=== PATIENT | male | born 1950 | race Caucasian/White ===

== ENCOUNTER → 2020-08-23 | Outpatient (CLI) | payer OTHER ==
[~2020-08-23] MED LIST: ASPIRIN EC81 M1 PO; BYSTOLIC 5 MG5 M1 PO; CELEBREX 200 M200 MG PO; HYDROCODONE-AP1 EAC6 PO; IBUPROFEN 800800 M1 PO; METAMUCIL WAFER1 PK1 PO; MIRALAX255 GM PO; NEURONTIN 300300 M1 PO; OXCARBAZEPINE300 MG PO; OXYCONTIN10 M1 PO; OXYIR5 MG PO; SIMVASTATIN40 MG PO; STOOL SOFTENER1 EAC2 PO; STOOL SOFTENER50 MG; XARELTO10 MG PO; [UNRECOGNIZED DRUG - OTHER]
== END ==
LOC: M.LAB 07:24
PROVIDERS: ATTEND Orthopaedic Surgery
DX: Z01.812 Encounter for preprocedural laboratory examination (principal); Z20.828 Contact with and (suspected) exposure to other viral communicable diseases

== ENCOUNTER → 2021-03-08 | Outpatient (CLI) | payer OTHER | LOC: M.MRI 07:37 | PROVIDERS: ATTEND Orthopaedic Surgery | DX: S83.241A Other tear of medial meniscus, current injury, right knee, initial encounter (principal); M25.461 Effusion, right knee; M71.21 Synovial cyst of popliteal space [Baker], right knee; M17.11 Unilateral primary osteoarthritis, right knee; G89.29 Other chronic pain; R60.0 Localized edema; X58.XXXA Exposure to other specified factors, initial encounter; Y93.89 Activity, other specified; Y92.89 Other specified places as the place of occurrence of the external cause; Y99.8 Other external cause status ==

== ENCOUNTER → 2021-08-14 | Day surgery (SDC) | payer OTHER, MEDICARE ==
[~2021-08-14] MED LIST changes: +CARVEDILOL25 MG PO; +LEXAPRO 10 MG T10 M1 PO; +LISINOPRIL10 MG PO; +NORCO5 PO; +PROSCAR 5MG TABL5 MG PO; +ROSUVASTATIN CA10 MG PO; +TROSPIUM CHLORI20 MG PO; +ZINC50 MG PO
[2021-08-14 06:37] LABS: HEMATOCRIT 43.9 % (42.0-52.0); HEMOGLOBIN 14.6 gm/dL (14.0-18.0); MCH 30.9 pg (26.0-34.0); MCHC 33.3 g/dL (28.0-37.0); MCV 92.8 fL (80.0-100.0); MPV 6.3 fl. (7.2-11.1); RBC 4.73 mil/uL (4.50-6.00); RDW-CV 12.9 % (10.5-14.5); WBC 4.9 thou/uL (4.0-11.0)
[2021-08-14 06:48] LABS: ALBUMIN 3.2 g/dL (3.4-5.0); CALCIUM 8.7 mg/dL (8.5-10.1); CREATININE 0.9 mg/dL (0.6-1.3); POTASSIUM 4.6 mmol/L (3.5-5.1); TOTAL BILIRUBIN 0.6 mg/dL (<0.1-1.0); TOTAL PROTEIN 6.9 g/dL (6.4-8.2)
--- NOTE | 2021-08-17 18:06 | PATH ---
[facility] [address] [place] [address] PATHOLOGY RPT PROCEDURE Name: JALEN SERRANO Room: [facility].#: [id number] Admission: 08/14/21 Date of : 54 Discharge: Report #: [id number] Path Case #: [id number] [facility] Accession Number: [id number] . 01 Material submitted: . gallbladder - GALLBLADDER WITH CONTENTS . 01 Clinical history: . LAPAROSCOPIC CHOLECYSTECTOMY CALCULUS OF GALLBLADDER . 02 Diagnosis: Gallbladder, excision: - Mild chronic cholecystitis. - Lithiasis. - Negative for malignancy. (WILLOW:lita; 08/17/2021) [facility]BR 08/17/2021 1610 Local . 02 Electronically signed: . Mahsa Esquivel MD, Pathologist NPI- [id number] . 01 Gross description: . Fixative: Formalin Labeled: Gallbladder with contents Specimen received: Intact cholecystectomy Dimensions: 8.7 x 4.2 x 2.3 cm Serosa: Yellow-rivera and smooth Lymph node: Not present Mucosa: Green and velvety Average wall thickness: 0.3 cm Calculi: Yes, multiple multifaceted calculi are present within the gallbladder measuring in aggregate 3.6 x 3.5 x 1.3 cm and ranging from 1.2-1.5 cm in greatest dimension Abnormalities: None identified A1- Dress Finisher body, fundus, and the cystic duct margin. ([facility]; 08/16/2021) [facility] 08/16/2021 0948 Local . 02 Pathologist provided ICD-10: K80.10 . 02 CPT . 143678 Specimen Comment: A courtesy copy of this report has been sent to [phone] Specimen Comment: [id number] [place] [address] PATHOLOGY RPT PROCEDURE Name: JALEN SERRANO Room: [facility]#: [id number] Admission: 08/14/21 Date of : 54 Discharge: Report #: [id number] Path Case #: [id number] Specimen Comment: Report sent to / DR YOU Performed at: 01 [facility] Anthony Recio [address], [place], [place] [id number] MD Oseas Costello MD Phone: [phone] Performed at: [address] [id number] MD Giacomo Braswell MD Phone: [phone]
--- NOTE | 2021-08-18 12:00 | OP ---
[facility] [address] [place] [address] OPERATIVE REPORT Name: JALEN SERRANO Room: [facility].#: [id number] Admission: 08/14/21 Attend Phys: Gerardo Meier Discharge: Date of : 54 Report #: [id number] THIS REPORT FOR: cc: Goldy Lopez MD, Anthony MD Patterson,Gerardo Enciso MD ~ DATE OF SURGERY: 08/14/2021 PREOPERATIVE DIAGNOSIS: Symptomatic cholelithiasis. POSTOPERATIVE DIAGNOSIS: Symptomatic cholelithiasis. OPERATION: Laparoscopic cholecystectomy. SURGEON: Gerardo Meier MD. ANESTHESIA: General. ESTIMATED BLOOD LOSS: Minimal. SPECIMENS: Gallbladder. DESCRIPTION OF PROCEDURE: After informed consent was obtained, the patient was brought to the operating room and placed supine. SCDs were placed and working, preoperative antibiotics were administered, general anesthesia was induced. The abdomen was prepped and draped in the usual sterile fashion. A 10 mm incision was made above the umbilicus. Fascia was incised and a trocar was placed. Pneumoperitoneum was established. Three right upper quadrant 5 mm ports were placed. Gallbladder was grasped at the fundus and retracted cephalad. Infundibulum was grasped and retracted laterally. I dissected out the cystic duct and cystic artery. The cystic plate was fully identified. Cystic duct and artery were clipped and ligated leaving 2 clips on the remaining duct and 1 on the remaining artery. Gallbladder was then taken off the liver bed with electrocautery. It was placed into an Endopouch and removed. The fascia was then closed with a peqgdl-ya-jrbif 0 Vicryl. Skin was closed with 4-0 Monocryl. Incisions were dressed with Steri-Strips. COMPLICATIONS: None. DISPOSITION: The patient was taken to recovery in satisfactory condition. <ELECTRONICALLY SIGNED> By: Gerardo Meier MD 08/18/21 1200 0813 [id number] Meier MD /nt
== END | disposition home or self-care (01) ==
LOC: M.SUR 06:00
PROVIDERS: Anesthesiology; ATTEND Surgery
DX: K80.10 Calculus of gallbladder with chronic cholecystitis without obstruction (principal); R10.11 Right upper quadrant pain; G89.29 Other chronic pain; Z20.822 Contact with and (suspected) exposure to COVID-19; Z98.890 Other specified postprocedural states; Z79.899 Other long term (current) drug therapy; Z87.891 Personal history of nicotine dependence

== ENCOUNTER 2021-08-28 05:51 | Observation (INO) | payer OTHER ==
[~2021-08-28] VITALS: Ht 177.8 cm; Wt 102.1 kg
--- NOTE | ~2021-08-28 | OP ---
[address] [address] OPERATIVE REPORT Name: JALEN SERRANO Room: [address] M[address]R.#: [id number] Admission: 08/28/21 Attend Phys: Dolly Meléndez Discharge: Date of : 54 Report #: [id number] THIS REPORT FOR: cc: Goldy Lopez MD, Anthony MD Greiner, Robert F. II DO ~ DATE OF SURGERY: 08/28/2021 PREOPERATIVE DIAGNOSIS: Right knee osteoarthritis. POSTOPERATIVE DIAGNOSIS: Right knee osteoarthritis. PROCEDURE: Right total knee arthroplasty. SURGEON: Osman Chavez II, DO. SOLDERER TORCH: DIANNA Cooper. ANESTHESIA: Per operative record. ESTIMATED BLOOD LOSS: 50 mL. ANTIBIOTICS: Per operative record. DRAINS: Medium Hemovac. COMPLICATIONS: None. CONDITION: The patient stable to recovery room. DESCRIPTION OF PROCEDURE: The patient was taken to the operative suite, placed supine on the operating table, given appropriate anesthesia. A well-padded tourniquet was applied to the upper thigh, which was inflated to 300 mmHg after gravity exsanguination. The operative knee was sterilely prepped and draped. Surgery began by midline incision, was carried down to subcutaneous tissues. A medial parapatellar arthrotomy was performed, carried down to bone. Patella was then everted and excess soft tissue removed from the femur. Femoral cutting block was then applied, checked with a drop rotational alignment, pinned in appropriate position and appropriate cuts were made. A formal timeout was then applied, checked for rotational alignment, pinned in appropriate position and appropriate cuts were made. Tibia was exposed. Excess meniscus was removed. Retractor was placed on collateral ligaments. Tibial cutting block was then applied, pinned in appropriate position, checked with drop rotational alignment and slope and appropriate cut was made. Tibial bone was removed. Tibial baseplate was then applied, checked for rotational alignment with the drop liam and pinned in appropriate position. Femur was then [place] [address] OPERATIVE REPORT Name: JALEN SERRANO Room: [address] M.R.#: [id number] Admission: 08/28/21 Attend Phys: Dolly Meléndez Discharge: Date of : 54 Report #: [id number] reamed. This was then trialed with appropriate spacer, which showed excellent fit and fill and excellent stability to the knee through all range of motion. The patella was reamed in appropriate fashion, sized to appropriate size. Three peg holes were drilled and it was then trialed and showed excellent flexion and extension, excellent tracking patella within the groove. These trials were then removed. Tibia was punched in appropriate fashion. Bone ends were cleansed with Pulsavac irrigation and cement was mixed, applied to final implants. These were then malleted in position and held the knee extension and compressed to allow cement to cure. After it cured, excess cement was removed utilizing [place] and osteotome. The wound was then copiously irrigated and a final spacer was then malleted in position. Tourniquet was deflated. Hemostasis was maintained with electrocautery. Pain cocktail was injected. Capsule was closed with 2 FiberWire and 1 Vicryl in balklf-nu-evvdp fashion. Skin was closed with 2-0 Vicryl in running 3-0 Monocryl. Dermabond dressing applied. Jigar wrap and PolarCare applied. The patient transported to recovery in stable condition. Count were correct. By: 21 [id number] Chavez II, DO /nt
[2021-08-28] MEDS ORDERED: MYRBETRIQ25 MG PO (07:24)
[2021-08-28 08:11] VITALS: BP 151/108
[2021-08-28 16:56] VITALS: BP 149/96
[2021-08-28 20:00] VITALS: BP 160/100
[2021-08-29 04:00] VITALS: BP 134/85
[2021-08-29 04:42] LABS: HEMATOCRIT 41.8 % (42.0-52.0); HEMOGLOBIN 14.1 gm/dL (14.0-18.0)
[2021-08-29 07:56] VITALS: BP 154/97
[2021-08-29] MEDS ORDERED: NORCO5 PO (08:22)
[2021-08-29] MEDS ORDERED: XARELTO10 MG PO (08:22)
[2021-08-29 09:23] VITALS: BP 154/97
[2021-08-29 12:02] VITALS: BP 154/97
== END 2021-08-29 15:40 | disposition home or self-care (01) ==
LOC: M.ORTHSURG → M.TBA 07:02 → M.ORTHSURG 11:01 → M.2W 19:45
PROVIDERS: Orthopaedic Surgery; ADMIT Internal Medicine; ATTEND Internal Medicine
DX: M17.11 Unilateral primary osteoarthritis, right knee (principal); Z20.822 Contact with and (suspected) exposure to COVID-19; N40.0 Benign prostatic hyperplasia without lower urinary tract symptoms; N32.89 Other specified disorders of bladder; Z98.890 Other specified postprocedural states; Z87.891 Personal history of nicotine dependence